=== PATIENT | male | born 1940 | race Caucasian/White ===

== ENCOUNTER 2018-07-23 20:13 | Inpatient (IN) | payer OTHER ==
[2018-07-23] MEDS ORDERED: ACETAMINOPHEN 325 MG TAB PO (22:30)
[2018-07-23] MEDS ORDERED: NITROGLYCERIN (SL) 0.4 MG TAB SL (22:30)
[2018-07-23] MEDS ORDERED: NACL 0.9% 3 ML SYG IV (22:30)
[2018-07-23] MEDS ORDERED: ONDANSETRON 4 MG INJ IV (22:30)
[2018-07-23 23:14] LABS: CREATINE KINASE 33 IU/L (23-200)
[2018-07-23 23:27] LABS: CK INDEX 1.1; CK-MB 0.37 ng/ml (0.0-2.4); TROPONIN-I < 0.012 ng/ml (0.000-0.120)
[2018-07-24 04:28] LABS: ADD MAN DIFF? NO
[2018-07-24 04:29] LABS: BASOPHIL # 0.1 10^3/ul (0.0-0.1); BASOPHILS % 0.5 % (0.0-2.0); EOSINOPHILS # 0.2 10^3/ul (0.0-0.5); EOSINOPHILS % 1.3 % (0.0-7.0); HEMATOCRIT 38.5 % (42.0-52.0); HEMOGLOBIN 12.7 g/dl (14.0-18.0); LYMPHOCYTES # 3.1 10^3/ul (0.8-2.9); LYMPHOCYTES % 26.9 % (15.0-51.0); MEAN CORPUSCULAR HEMOGLOBIN 28.2 pg (29.0-33.0); MEAN CORPUSCULAR VOLUME 85.4 fl (82.0-101.0); MEAN PLATELET VOLUME 10.9 fl (7.4-10.4); MONOCYTE # 1.4 10^3/ul (0.3-0.9); MONOCYTES % 11.6 % (0.0-11.0); NEUTROPHIL # 6.9 10^3/ul (1.6-7.5); NEUTROPHILS % 59.4 % (39.0-77.0); PLATELET COUNT 199 10^3/UL (140-415); RED BLOOD COUNT 4.51 10^6/ul (4.70-6.10); RED CELL DISTRIBUTION WIDTH 13.5 % (11.5-14.5)
[2018-07-24 04:29] LABS: WHITE BLOOD COUNT 11.7 10^3/ul (4.8-10.8)
[2018-07-24 04:38] LABS: HEMOGLOBIN A1C 6.7 % (0-5.9)
[2018-07-24 04:46] LABS: CREATINE KINASE 36 IU/L (23-200)
[2018-07-24 04:48] LABS: ALANINE AMINOTRANSFERASE 25 IU/L (13-69); ALBUMIN 3.6 g/dl (3.3-4.9); ALBUMIN/GLOBULIN RATIO 1.16; ALKALINE PHOSPHATASE 62 IU/L (42-121); ANION GAP 10 (5-13); ASPARTATE AMINO TRANSFERASE 17 IU/L (15-46); BILIRUBIN,INDIRECT 0.7 mg/dl (0-1.1); BILIRUBIN,TOTAL 0.7 mg/dl (0.2-1.3); BLOOD UREA NITROGEN 19 mg/dl (7-20); CALCIUM 8.8 mg/dl (8.4-10.2); CARBON DIOXIDE 27 mmol/L (21-31); CHLORIDE 106 mmol/L (97-110); CHOL/HDL RATIO 3.7 RATIO; CHOLESTEROL 87 mg/dl (100-200); GLUCOSE 152 mg/dl (70-220); HDL CHOLESTEROL 23 mg/dl (31-75); LDL CHOLESTEROL,CALCULATED 42 mg/dl; MAGNESIUM 1.9 mg/dl (1.7-2.5); SODIUM 143 mmol/L (135-144); TOTAL PROTEIN 6.7 g/dl (6.1-8.1); TRIGLYCERIDES 108 mg/dl (0-149)
[2018-07-24 04:59] LABS: CK INDEX 1.1; CK-MB 0.38 ng/ml (0.0-2.4); TROPONIN-I < 0.012 ng/ml (0.000-0.120)
[2018-07-24] MEDS: ACCU-CHEK XX ×4 (07:19→21:00)
[2018-07-24] MEDS: metFORMIN 500 MG TAB PO ×3 (08:43→17:30)
[2018-07-24] MEDS: MECLIZINE 25 MG TAB PO ×2 (08:44→20:36)
[2018-07-24] MEDS: LOSARTAN 50 MG TAB PO (08:46)
[2018-07-24] MEDS: HYDROCHLOROTHIAZIDE 12.5 MG CAP PO (08:56)
[2018-07-24] MEDS ORDERED: NON-FORMULARY/PATIENT OWN MED (Losartan-Hydrochlorothiazide (Losartan-HCTZ) 1 TAB) PO (09:00)
[2018-07-24] MEDS: HEPARIN 5,000 UNIT/1 ML VIAL SC ×2 (09:16→21:00)
[2018-07-24] MEDS: OXYBUTYNIN 5 MG TAB PO ×2 (11:12→20:36)
[2018-07-24] MEDS: BISACODYL (EC) 5 MG TAB PO ×2 (14:00→15:24)
[2018-07-24] MEDS: POTASSIUM CHLORIDE (SR) 20 MEQ TAB PO (15:24)
[2018-07-24] MEDS: ATORVASTATIN 80 MG TAB PO (20:36)
[2018-07-25 05:36] LABS: ADD MAN DIFF? NO
[2018-07-25 05:37] LABS: BASOPHILS % 0.5 % (0.0-2.0); EOSINOPHILS # 0.1 10^3/ul (0.0-0.5); EOSINOPHILS % 0.9 % (0.0-7.0); HEMATOCRIT 40.5 % (42.0-52.0); HEMOGLOBIN 13.3 g/dl (14.0-18.0); LYMPHOCYTES # 3.1 10^3/ul (0.8-2.9); LYMPHOCYTES % 36.4 % (15.0-51.0); MEAN CORPUSCULAR HEMOGLOBIN 28.1 pg (29.0-33.0); MEAN CORPUSCULAR HGB CONC 32.8 g/dl (32.0-37.0); MEAN CORPUSCULAR VOLUME 85.6 fl (82.0-101.0); MEAN PLATELET VOLUME 11.2 fl (7.4-10.4); MONOCYTES % 11.4 % (0.0-11.0); NEUTROPHIL # 4.3 10^3/ul (1.6-7.5); NEUTROPHILS % 50.3 % (39.0-77.0); PLATELET COUNT 222 10^3/UL (140-415); RED BLOOD COUNT 4.73 10^6/ul (4.70-6.10); RED CELL DISTRIBUTION WIDTH 13.1 % (11.5-14.5)
[2018-07-25 05:37] LABS: WHITE BLOOD COUNT 8.6 10^3/ul (4.8-10.8)
[2018-07-25 05:53] LABS: ANION GAP 8 (5-13); BLOOD UREA NITROGEN 16 mg/dl (7-20); CALCIUM 8.8 mg/dl (8.4-10.2); CARBON DIOXIDE 29 mmol/L (21-31); CHLORIDE 104 mmol/L (97-110); CREATININE 1.02 mg/dl (0.61-1.24); GLUCOSE 125 mg/dl (70-220); POTASSIUM 3.3 mmol/L (3.5-5.1); SODIUM 141 mmol/L (135-144)
[2018-07-25] MEDS: ACCU-CHEK XX ×2 (07:00→11:21)
[2018-07-25] MEDS: metFORMIN 500 MG TAB PO ×2 (08:12→11:21)
[2018-07-25] MEDS: OXYBUTYNIN 5 MG TAB PO (09:13)
[2018-07-25] MEDS: MECLIZINE 25 MG TAB PO (09:13)
[2018-07-25] MEDS: HYDROCHLOROTHIAZIDE 12.5 MG CAP PO (09:14)
[2018-07-25] MEDS: LOSARTAN 50 MG TAB PO (09:14)
[2018-07-25] MEDS: HEPARIN 5,000 UNIT/1 ML VIAL SC (09:32)
[2018-07-25] MEDS: POTASSIUM CHLORIDE (SR) 20 MEQ TAB PO (15:23)
== END 2018-07-25 17:20 | disposition home or self-care (01) | DRG 310 ==
LOC: 6WM 20:13
DX: R00.1 Bradycardia, unspecified (principal); I95.9 Hypotension, unspecified; I48.0 Paroxysmal atrial fibrillation; I10 Essential (primary) hypertension; E87.6 Hypokalemia; E11.9 Type 2 diabetes mellitus without complications; E78.5 Hyperlipidemia, unspecified; F17.200 Nicotine dependence, unspecified, uncomplicated; K59.00 Constipation, unspecified; R07.9 Chest pain, unspecified; R55 Syncope and collapse; Z79.84 Long term (current) use of oral hypoglycemic drugs
CPT/HCPCS: 71046; 80048; 80053; 80061; 82550; 82553; 82962; 83036; 83735; 84443; 84484; 85025; 93005; 93306; 93880